=== PATIENT | male | born 1985 | race Two or more races ===

== ENCOUNTER 2021-10-27 14:07 | Inpatient (IN) | payer MEDICAID, OTHER ==
[~2021-10-27] VITALS: Ht 175.3 cm; Wt 54.6 kg
[2021-10-27] MEDS ORDERED: HYDROmorphone HCL 2 MG/ML VL/or syr IV ONE (16:00)
[2021-10-27] MEDS ORDERED: ONDANSETRON HCL 4 MG/2 ML VIAL IV ONE (16:00)
[2021-10-27 16:33] LABS: Hematocrit 25.1 % (41.0-53.0); Hemoglobin 8.5 g/dL (13.5-17.5); Mean Corpuscular Hemoglobin 33.5 pg (28.0-32.0); Mean Corpuscular Hgb Conc. 33.7 g/dL (32.0-36.0); Mean Corpuscular Volume 99.5 fL (80.0-100.0); Red Blood Cells 2.53 10^6/uL (4.5-5.90)
[2021-10-27 16:55] LABS: Albumin 2.4 g/dL (3.4-5.0); BUN/Creatinine Ratio 13.9; Calcium 8.1 mg/dL (8.5-10.1)
[2021-10-27 16:57] LABS: Band Neutrophils % (manual) 4; Basophils % (manual) 0 (0.0-2.0); Bilirubin, Total 0.6 mg/dL (0.2-1.0); Blast Cells 0; Eosinophils % (manual) 0 (0-7); Lymphocytes % (manual) 3 (10.0-50.0); Metamyelocytes % 0; Monocytes % (manual) 12 (0-12); Promyelocytes % 0; Reactive Lymphocytes 0; Red Cell Distribution Width 20.8 % (11.8-14.3); Total Protein 5.6 g/dL (6.4-8.2)
[2021-10-27 16:58] LABS: Myelocytes % 1
[2021-10-27] MEDS ORDERED: IOHEXOL 350 MG/ML 100ML IJ ONE (20:40)
[2021-10-27] MEDS ORDERED: DOCUSATE SOD 100 MG CAP PO PRN (22:30)
[2021-10-27] MEDS ORDERED: HYDROcodone-ACET 5/325MG TAB PO PRN (22:30)
[2021-10-27] MEDS ORDERED: NITROGLYCERIN 0.4 MG SL TAB SL PRN (22:30)
[2021-10-27 22:49] LABS: Hematocrit 29.1 % (41.0-53.0); Hemoglobin 9.6 g/dL (13.5-17.5); Mean Corpuscular Hemoglobin 33.5 pg (28.0-32.0); Mean Corpuscular Hgb Conc. 33.1 g/dL (32.0-36.0); Mean Corpuscular Volume 101.1 fL (80.0-100.0); Red Blood Cells 2.88 10^6/uL (4.5-5.90); White Blood Cell 6.6 10^3/uL (4.4-10.8)
[2021-10-27 22:53] LABS: Basophils % (manual) 0 (0.0-2.0); Blast Cells 0; Eosinophils % (manual) 0 (0-7); Myelocytes % 0; Promyelocytes % 0
[2021-10-27 23:08] LABS: BUN/Creatinine Ratio 10.9; Calcium 8.6 mg/dL (8.5-10.1); Potassium 4.4 mmol/L (3.5-5.1)
[2021-10-27 23:17] LABS: Band Neutrophils % (manual) 4; Lymphocytes % (manual) 3 (10.0-50.0); Metamyelocytes % 1; Monocytes % (manual) 12 (0-12); Reactive Lymphocytes 2
[2021-10-28] VITALS (7 sets, daily range): BP systolic 76–103; BP diastolic 50–73
[2021-10-28] MEDS ORDERED: ONDANSETRON HCL 4 MG/2 ML VIAL IV ONE (02:00)
[2021-10-28] MEDS ORDERED: HYDROmorphone HCL 2 MG/ML VL/or syr IV ONE (02:00)
[2021-10-28] MEDS ORDERED: FERR1TAB36 PO (02:24)
[2021-10-28] MEDS ORDERED: LEVO-28 PO (02:24)
[2021-10-28] MEDS ORDERED: ONDA-155 PO (02:24)
[2021-10-28] MEDS ORDERED: METO-517 PO (02:24)
[2021-10-28] MEDS ORDERED: NALO4SPR2 (02:24)
[2021-10-28] MEDS ORDERED: PANT40TA57 PO (02:24)
[2021-10-28] MEDS ORDERED: PREG-108 PO (02:24)
[2021-10-28] MEDS ORDERED: OXYC20TA69 PO (02:29)
[2021-10-28] MEDS ORDERED: OXYC-902 PO (02:29)
[2021-10-28] MEDS ORDERED: ONDA-180 PO (02:29)
[2021-10-28] MEDS ORDERED: METH500T22 PO (04:05)
[2021-10-28] MEDS: PANTOPRAZOLE 40 MG TAB PO SCH (10:20)
[2021-10-28] MEDS: ENOXAPARIN SOD 100 MG/1 ML SYRINGE SC SCH (10:23)
[2021-10-28] MEDS: FUROSEMIDE 40 MG/4 ML VIAL IV SCH (18:00)
[2021-10-28] MEDS: MORPHINE SULFATE INJECTION 2 MG/ML SYRG IV PRN (22:05)
[2021-10-28] MEDS: ONDANSETRON HCL 4 MG/2 ML VIAL IV PRN (22:48)
[2021-10-29] MEDS: MORPHINE SULFATE INJECTION 2 MG/ML SYRG IV PRN ×5 (02:14→22:45)
[2021-10-29 05:00] VITALS: BP 84/55
[2021-10-29] MEDS: FUROSEMIDE 40 MG/4 ML VIAL IV SCH ×2 (06:00→18:00)
[2021-10-29 08:56] VITALS: BP 90/56
[2021-10-29] MEDS: ENOXAPARIN SOD 100 MG/1 ML SYRINGE SC SCH (09:47)
[2021-10-29] MEDS: PANTOPRAZOLE 40 MG TAB PO SCH (09:47)
[2021-10-29] MEDS: MIDODRINE HCL 10 MG TAB PO SCH ×2 (12:00→18:17)
[2021-10-29 13:00] VITALS: BP 111/74
[2021-10-29 16:48] VITALS: BP 94/54
[2021-10-29 22:00] VITALS: BP 103/57
[2021-10-29] MEDS: ONDANSETRON HCL 4 MG/2 ML VIAL IV PRN (22:45)
[2021-10-30 05:00] VITALS: BP 108/52
[2021-10-30] MEDS: MORPHINE SULFATE INJECTION 2 MG/ML SYRG IV PRN ×2 (05:01→10:24)
[2021-10-30] MEDS: FUROSEMIDE 40 MG/4 ML VIAL IV SCH ×2 (06:00→17:59)
[2021-10-30] MEDS: MIDODRINE HCL 10 MG TAB PO SCH ×3 (06:24→17:58)
[2021-10-30 09:00] VITALS: BP 91/48
[2021-10-30] MEDS: ENOXAPARIN SOD 100 MG/1 ML SYRINGE SC SCH (10:20)
[2021-10-30] MEDS: PANTOPRAZOLE 40 MG TAB PO SCH (10:20)
[2021-10-30 13:00] VITALS: BP 90/51
[2021-10-30] MEDS: HYDROmorphone HCL 2 MG/ML VL/or syr IV PRN (15:51)
[2021-10-30 17:00] VITALS: BP 96/51
[2021-10-30 22:00] VITALS: BP 98/70
[2021-10-31 05:00] VITALS: BP 92/60
[2021-10-31] MEDS: MIDODRINE HCL 10 MG TAB PO SCH ×3 (05:29→17:35)
[2021-10-31] MEDS: HYDROmorphone HCL 2 MG/ML VL/or syr IV PRN ×4 (05:59→22:00)
[2021-10-31] MEDS: FUROSEMIDE 40 MG/4 ML VIAL IV SCH ×2 (06:00→17:34)
[2021-10-31 09:00] VITALS: BP 94/61
[2021-10-31] MEDS: ENOXAPARIN SOD 100 MG/1 ML SYRINGE SC SCH (10:07)
[2021-10-31] MEDS: PANTOPRAZOLE 40 MG TAB PO SCH (10:07)
[2021-10-31 17:00] VITALS: BP 86/56
[2021-10-31] MEDS: ONDANSETRON HCL 4 MG/2 ML VIAL IV PRN ×2 (17:33→21:59)
[2021-10-31 22:00] VITALS: BP 106/68
[2021-11-01] MEDS: HYDROmorphone HCL 2 MG/ML VL/or syr IV PRN ×5 (02:19→18:37)
[2021-11-01 05:00] VITALS: BP 109/70
[2021-11-01] MEDS: MIDODRINE HCL 10 MG TAB PO SCH ×3 (06:05→18:35)
[2021-11-01] MEDS: FUROSEMIDE 40 MG/4 ML VIAL IV SCH ×2 (06:06→18:35)
[2021-11-01 09:00] VITALS: BP 97/63
[2021-11-01] MEDS: PANTOPRAZOLE 40 MG TAB PO SCH (10:02)
[2021-11-01] MEDS: ENOXAPARIN SOD 100 MG/1 ML SYRINGE SC SCH (10:02)
[2021-11-01 13:00] VITALS: BP 103/69
[2021-11-01] MEDS ORDERED: HYDR2TAB58 PO (14:19)
[2021-11-01 16:15] VITALS: BP 103/69
[2021-11-01 17:00] VITALS: BP 100/63
[2021-11-01 19:07] VITALS: BP 98/56
== END 2021-11-01 20:07 | disposition home health service (06) | DRG 343 ==
LOC: ER 14:07 → EDBD 14:07 → OVERFLOW 22:16 → WEST WING 23:43 → TELE-WESTW 10-28 21:14
PROVIDERS: ADMIT Internal Medicine; ATTEND Internal Medicine
DX: C79.51 Secondary malignant neoplasm of bone (principal); E43 Unspecified severe protein-calorie malnutrition; C49.5 Malignant neoplasm of connective and soft tissue of pelvis; D63.8 Anemia in other chronic diseases classified elsewhere; K21.9 Gastro-esophageal reflux disease without esophagitis; G89.4 Chronic pain syndrome; Z85.831 Personal history of malignant neoplasm of soft tissue; Z92.21 Personal history of antineoplastic chemotherapy; Z92.3 Personal history of irradiation; Z20.822 Contact with and (suspected) exposure to COVID-19; Z68.1 Body mass index [BMI] 19.9 or less, adult
CPT/HCPCS: 36415; 71046; 71275; 80048; 80053; 84484; 85007; 85027; 85379; 86850; 86900; 86901; 87081; 93005; 93306; 96374; 96375; G0378; J1642; J2405